=== PATIENT | male | born 1970 | race Caucasian/White ===

== ENCOUNTER 2018-12-27 17:56 | Emergency (ER) | payer MEDICARE, MEDICAID ==
[~2018-12-27] VITALS: Ht 177.8 cm; Wt 120.5 kg
[~2018-12-27 17:56] MED LIST: ALPR-624 PO; LEVO50TA67 PO; METH-234 PO; NEPHC PO; NORCO10T PO; PAX20T PO; SEVE800T8 PO; SIMV-42 PO; TRAZ-91 PO
--- NOTE | 2018-12-27 19:41 | NUR ---
PT FAMILY REPORTS HE HAS THROWN THINGS BEFORE, PT INNER JECTS AND HAS EXPLINATIONS FOR SOME OF HIS BEHVAIOR AND DOES STATES HE IS REACTING TO FEAR . PT ALSO IS JITTERY.
--- NOTE | 2018-12-27 20:00 | NUR ---
UPON REVIEWING PT MED REC , PT WAS A POOR HISTORIAN ON WHAT MEDS HE IS CURRENTLY TAKING AND NOT TAKING. PT EXTERNAL MED HX REPORTS THAT PT WAS PRESCRIBED OVER THE LAST 60 DAYS CLONIDINE HCL 0.1 MG Q HS BUT COULDNT RECALL WHEN HE LAST TOOK MEDICATION AND IF HE WAS TO CONTINUE MEDICATION AFTER FOLLOWI UP WITH PRIMARY MD. ALSO REVIEWED MEDS LEVOXYL 50 MCG PO QD , ZOLPIDEM TARTRATE 5 MG QD , AND bUPRENOPHINE/NALOX - THESE MEDS PT WAS NOT SURE OF LAST KNOWN DATE HE TOOK THEM OR IF HE SHOULD CONTINE UPON REVIEW OF HIS CURRENT MEDICATIONS , DOSAGES, AND LAST TIME HE TOOK THEM. PT DOES REPORT TAKING 1-2 XANAX TID NEEDED, AND A RECENT" WHEENING OF NORCO " " I HAVENT TAKEN ANY NORCO FOR ABOUT A MONTH IN A HALF- FAMILY HOWEVER REPORTS THAT PT WAS TAPERED OFF THRE NORCO BUT DID NOT FOLLOW THE SUGGESTIONS OF THE MD TAPER. MOTHER AT BEDSIDE STATED THAT PT TOOK NORCO HE WANTED UNTIL THEY WERE GONE , AND HASNT HAD ANY IN A FEW WEEKS. PT BEGAN TO ARGUE WITH FAMILY , BUT WAS EASILY CONSOLED WITH VERBAL DISCUSSION AND REASSURNCE.
[2018-12-27 20:04] LABS: BASOPHILS # (AUTO) 0.1 X10'3 (0-0.2); BASOPHILS % (AUTO) 0.8 % (0-1); EOSINOPHILS # (AUTO) 0.1 X10'3 (0-0.9); EOSINOPHILS % (AUTO) 0.8 % (0-6); HEMATOCRIT 40.9 % (42.0-52.0); HEMOGLOBIN 13.3 g/dl (14.0-17.9); LYMPHOCYTES % (AUTO) 7.4 % (21-51); MEAN CORPUSCULAR HEMOGLOBIN 31.6 PG (27.0-31.0); MEAN CORPUSCULAR HGB CONC 32.4 g/dL (33.0-36.5); MEAN CORPUSCULAR VOLUME 97.3 FL (78-98); MEAN PLATELET VOLUME 8.8 FL (7.4-10.4); MONOCYTES # (AUTO) 0.7 X10'3 (0-0.9); MONOCYTES % (AUTO) 4.9 % (2-12); NEUTROPHILS # (AUTO) 11.9 X10'3 (1.8-7.7); NEUTROPHILS % (AUTO) 86.1 % (42-75); PLATELET COUNT 287 X10'3 (140-440); RED CELL DISTRIBUTION WIDTH 15.8 % (11.5-14.5); WHITE BLOOD COUNT 13.8 X10'3 (4.5-11.0)
--- NOTE | 2018-12-27 20:05 | NUR ---
PT MOTHER IS ADELE HICKS PHONE # SISTER IS DOMO MCLEOD BOTH FAMILY MEMEBERS HAVE LEFT THE BEDSIDE AT THIS TIME
--- NOTE | 2018-12-27 20:07 | NUR ---
PT ASKED FOR EXTRA PILLOW TO POSITON FOR COMFORT. PT HOB ELEVATED 30 DEGREEES APPEARS TO BE TRYING TO FALL ASLEEP. CLOSES HIS EYES BUT IS STRALED AWAKE LIKE MAYBE HE IS FALLING . PT ALSO IS BATING THINGS AWAY. WHEN VERBALLY ASK PT IF HE FEELS SAFE , HE STATES YES, I JUST NEED SOME SLEEP .
[2018-12-27 20:10] LABS: ALANINE AMINOTRANSFERASE 29 U/L (12-78); ALBUMIN 4.1 G/DL (3.4-5.0); ALKALINE PHOSPHATASE 72 IU/L (46-116); ANION GAP 19 (8-16); ASPARTATE AMINO TRANSFERASE 25 U/L (10-37); BILIRUBIN,TOTAL 0.6 MG/DL (0.1-1.0); BLOOD UREA NITROGEN 63 MG/DL (7-18); CALCIUM 9.3 MG/DL (8.5-10.1); CHLORIDE 96 MMOL/L (99-107); GLUCOSE 119 MG/DL (70-104); POTASSIUM 3.1 MMOL/L (3.5-5.1); SODIUM 142 MMOL/L (135-145); TOTAL CARBON DIOXIDE 27.5 MMOL/L (24-32); TOTAL PROTEIN 8.3 G/DL (6.4-8.2); eGFR 3 ML/MIN
--- NOTE | 2018-12-27 20:13 | NUR ---
PT POINTING AND TALKING LIKE SOMEONE IS AT THE FOOT OF BED . BUT WHEN APPROACHED PT REPLIES i AM OK
[2018-12-27 20:17] LABS: ETHANOL < 0.010 GM/DL (0.0-0.010)
[2018-12-27 20:31] LABS: BUN/CREATININE RATIO 4.1 (5.4-32.0)
--- NOTE | 2018-12-27 20:49 | NUR ---
PT LAYING ON HIS BACK HOB ELEVATED 30 DEGREES CURRENTLY SLEEPING WITH A SLIGHT SNORE UNLABORED AND COMFORTABLE
--- NOTE | 2018-12-27 21:45 | NUR ---
PT SLEEPING , WITH OCCATIONAL MOTIONS AND MUMBLING. UNLABORED RESPIRATIONS. SELF POSITIONING
--- NOTE | 2018-12-27 22:45 | NUR ---
PT SELF POSTIONING. SLEEPING, TALKS IN HIS SLEEP
[2018-12-27] MEDS ORDERED: CLON0.1T2 PO (23:07)
[2018-12-27] MEDS ORDERED: BUPRENORPHINE/NALOX (23:07)
[2018-12-27] MEDS ORDERED: ZOLP5TAB8 PO (23:07)
--- NOTE | 2018-12-27 23:45 | NUR ---
PT HOB LEVATED 30 DEGREES PER HIS REQUEST. SELF POSITIONING . NO COMPLAINTS AT THIS TIME
--- NOTE | 2018-12-28 00:45 | NUR ---
PT SLEEPING COMFORTABLY ON HIS BACK . UNLABORED CONTENT AT THIS TIME
--- NOTE | 2018-12-28 02:55 | NUR ---
PT SLEEPING ON HIS BACK . OCCATIONALLY MUMBLES IN HIS SLEEP , APPEARS TO MAKE MOTIONS LIKE HE MIGHT BE FALLING AURSOABLE BY TOUCH. ONCE AWOKEN ASKED THE TIME . WARM BLANKET GIVEN MED REC COMPLETED. DR RAO OF PT MUMBLING IN HIS SLEEP . WILL CONTINUE TO REASSESS .
--- NOTE | 2018-12-28 03:02 | NUR ---
PACKET FAXED TO [facility] WITH NOTATION THAT A URINE TOX HAS NOT BEEN COMPLETED BC THE PT DOESNT CREATE URINE. PT IS ON DIALYSIS NEXT VISIT FOR TX IS DUE LAURA 12-28-18 PER PT MOTHER
--- NOTE | 2018-12-28 03:59 | NUR ---
PT RESTING ON BACK IN BED . ALL COVERS REMOVED. OFFERED A WARM BLANKET . HOB ELEVATED 30 DEGREEA. RESPIRATIONS UNLABORED.
--- NOTE | 2018-12-28 05:34 | NUR ---
PT SLEEPING PEACFULLY ON HIS BACK .UNLABORED RESPIRATIONS NO COMPLAINTS AT THIS TIME
--- NOTE | 2018-12-28 05:39 | NUR ---
PT AWAKEN FOR VS . PT VERBALIZED HIS LEFT ARM HAS HIS FISTULA FOR HIS DIALYSIS . REASSURED PT THAT HIS LEFT ARM WILL BE USED FOR BP
[2018-12-28] MEDS ORDERED: ALPRAZolam 0.5mg tablet PO PRN (06:10)
--- NOTE | 2018-12-28 07:00 | NUR ---
Pt received sleeping in bed without complaints and in no distress.
[2018-12-28] MEDS ORDERED: levoTHYROXINE 25mcg tablet PO SCH (08:00)
[2018-12-28] MEDS ORDERED: folic acid/vitamin B complex w/vitamin C 0.8mg tablet PO SCH (08:00)
[2018-12-28] MEDS ORDERED: LIDOcaine 1% (10mg/ml) 2ml vial SQ ONE (08:20)
[2018-12-28] MEDS ORDERED: normal saline 1000ml 250 ML IV PRN (08:20)
--- NOTE | 2018-12-28 09:00 | NUR ---
Pt up for breakfast and was interacting appropriately with staff and peer in bed next to him. No evidence of delusional thought process or hallucinations.
[2018-12-28] MEDS ORDERED: acetaminophen 325mg tablet PO ONE (10:15)
--- NOTE | 2018-12-28 11:00 | NUR ---
Pt sleeping in bed without complaints. Pt had requested tylenol, but fell asleep, so his tylenol is being held.
--- NOTE | 2018-12-28 13:00 | NUR ---
Pt awake for lunch. Pt now requesting tylenol for his neck again. Pt mood and affect are slightly anxious r/t his dialysis and when/where he will be dc'd.
[2018-12-28] MEDS: NICOTINE POLACRILEX 2 MG LOZENGE BC PRN ×2 (13:13→17:36)
--- NOTE | 2018-12-28 13:31 | NUR ---
Pt given tylenol and mom and sister at bedside visiting.
--- NOTE | 2018-12-28 14:32 | NUR ---
PATIENT AMBULATED WITH SMOKED MEAT PREPARER GINA TO ROOM 29 FOR HIS HD RUN
--- NOTE | 2018-12-28 15:02 | NUR ---
Pt off unit receiving dialysis.
--- NOTE | 2018-12-28 17:00 | NUR ---
Pt continues to be under care of dialysis nurse receiving dialysis. Pt did meet with [facility] and his mom and sister and seem to have come to an understanding that he will be dc'd home tonight.
[2018-12-28 19:14] VITALS: BP 151/80
== END 2018-12-28 19:18 | disposition home or self-care (01) ==
LOC: ER 17:57
DX: R44.3 Hallucinations, unspecified (principal); R41.0 Disorientation, unspecified; R53.83 Other fatigue; R56.9 Unspecified convulsions; F41.9 Anxiety disorder, unspecified; F32.9 Major depressive disorder, single episode, unspecified; F17.200 Nicotine dependence, unspecified, uncomplicated; F12.90 Cannabis use, unspecified, uncomplicated; Z79.899 Other long term (current) drug therapy
CPT/HCPCS: 36415; 80053; 80320; 85025; 96372; 96374; 99284; J1644; J2001; G0257

== ENCOUNTER 2019-06-20 10:02 | Outpatient (CLI) | payer MEDICARE, MEDICAID ==
[2019-06-20] VITALS (21 sets, daily range): BP systolic 112–151; BP diastolic 69–102
[~2019-06-20 10:02] MED LIST changes: +BUPRENORPHINE/NALOX; +CLON0.1T2 PO; -METH-234 PO; -NORCO10T PO; -PAX20T PO; -SEVE800T8 PO; -SIMV-42 PO; -TRAZ-91 PO; +ZOLP5TAB8 PO
== END 2019-06-20 23:59 | disposition home or self-care (01) ==
LOC: CARD DIAG 10:02
PROVIDERS: ATTEND Internal Medicine Cardiovascular Disease
DX: R42 Dizziness and giddiness (principal)
CPT/HCPCS: 93660

== ENCOUNTER 2019-11-18 12:41 | Day surgery (SDC) | payer MEDICARE, MEDICAID ==
[~2019-11-18] VITALS: Ht 175.3 cm; Wt 127.7 kg
[2019-11-18 13:00] VITALS: BP 152/78
[2019-11-18] MEDS ORDERED: normal saline 1000ml 1,000 ML IV SCH (13:10)
--- NOTE | 2019-11-18 13:30 | NUR ---
per Dr. Barrow no labs needed.
[2019-11-18] MEDS ORDERED: PREG300C PO (13:33)
[2019-11-18] MEDS ORDERED: CARI-75 PO (13:33)
[2019-11-18] MEDS ORDERED: HYDR-4383 PO (13:34)
[2019-11-18] MEDS ORDERED: LIDOcaine 1%/PF 5ML 10 MG/ML VIAL ONE (14:13)
[2019-11-18] MEDS ORDERED: heparin 1,000unit/ml 10ml vial 10 ML ONE (14:13)
[2019-11-18] MEDS ORDERED: fentaNYL/PF 50MCG/1 ML 2ML syringe ONE (14:38)
[2019-11-18] MEDS ORDERED: midazolam 2 mg/2 ml injection ONE (14:38)
[2019-11-18] MEDS ORDERED: LIDOcaine 1% w/epiNEPHrine 1:200,000 30ml vial ONE (14:45)
[2019-11-18] MEDS ORDERED: DESMOPRESSIN IV ONE (14:55)
[2019-11-18] MEDS ORDERED: gelatin sponge, absorbable (Gelfoam 100) sponge TP ONE (14:55)
[2019-11-18] MEDS ORDERED: NORMAL SALINE IV ONE (14:55)
[2019-11-18 15:22] VITALS: BP 124/78
[2019-11-18 15:30] VITALS: BP 152/70
--- NOTE | 2019-11-18 15:35 | NUR ---
spoke with DR. Barrow cxr ok, discharge pt now.
[2019-11-18 15:45] VITALS: BP 156/76
== END 2019-11-18 16:00 | disposition home or self-care (01) ==
LOC: SSTAY O 12:41
PROVIDERS: ATTEND Radiology Vascular & Interventional Radiology
DX: T82.590A Other mechanical complication of surgically created arteriovenous fistula, initial encounter (principal); N18.6 End stage renal disease; N17.9 Acute kidney failure, unspecified; Z88.8 Allergy status to other drugs, medicaments and biological substances; Y83.8 Other surgical procedures as the cause of abnormal reaction of the patient, or of later complication, without mention of misadventure at the time of the procedure; Y92.89 Other specified places as the place of occurrence of the external cause
CPT/HCPCS: 36558; 71045; 76937; 77001; C1750; C1769; C1894; J1644; J2250; J3010; 99152; 99153; A9270

== ENCOUNTER 2021-04-06 10:22 | Emergency (ER) | payer MEDICARE, MEDICAID ==
[~2021-04-06] VITALS: Ht 177.8 cm; Wt 127.0 kg
[~2021-04-06 10:22] MED LIST changes: -ALPR-624 PO; +CARI-75 PO; -CLON0.1T2 PO; +HYDR-4383 PO; +PREG300C PO; -ZOLP5TAB8 PO
[2021-04-06 10:27] VITALS: BP 197/107
--- NOTE | 2021-04-06 10:36 | NUR ---
Pt now stating that he is ready to give up, when asked pt states that he is experiencing SI. Plan to borrow someones vehicle and drive "off the freeway".
--- NOTE | 2021-04-06 10:40 | NUR ---
PT STATED " IM JUST READY TO END IT ALL." MD AT BEDSIDE ASKED PT IF HE HAS A PLAN. PT STATED " I WOULD BORROW A CAR AND DRIVE IT OFF THE FREEWAY." MD EXPLAINED TO PT THAT HE WILL BE EVALUATED BY MENTAL HEALTH FOR HIS SUICIDAL THOUGHTS W/ PLAN. MD EXPLAINED THAT THIS WILL NOT CHANGE THE COURSE OF ACTION FOR HIS MEDICAL CARE. EXPLAINED THAT THESE MEDICAL COMPLAINTS ARE CHRONIC AND ARE BEING TREATED BY PTS SCOOTER MECHANIC AND NO MEDICAL CHANGES WILL BE MADE AT THIS TIME. PT VERBALIZED HE UNDERSTANDS. PT CONT TO SAY HE IS FED UP AND WANTS TO "END IT."
--- NOTE | 2021-04-06 10:46 | NUR ---
Spoke with Dr. sosa regarding patient needing a COVID swab prior to being sent ot the OF unit. Dr. sosa gave verbal order for COVID DIO swab once now.
[2021-04-06 11:05] LABS: BASOPHILS % (AUTO) 0.6 % (0-1); EOSINOPHILS # (AUTO) 0.3 X10'3 (0-0.9); EOSINOPHILS % (AUTO) 3.4 % (0-6); HEMATOCRIT 27.7 % (42.0-52.0); HEMOGLOBIN 9.3 g/dl (14.0-17.9); LYMPHOCYTES # (AUTO) 0.9 X10'3 (1.1-4.8); LYMPHOCYTES % (AUTO) 11.8 % (21-51); MEAN CORPUSCULAR HEMOGLOBIN 32.8 PG (27.0-31.0); MEAN CORPUSCULAR HGB CONC 33.7 g/dL (33.0-36.5); MEAN CORPUSCULAR VOLUME 97.4 FL (78-98); MEAN PLATELET VOLUME 8.7 FL (7.4-10.4); MONOCYTES # (AUTO) 0.7 X10'3 (0-0.9); MONOCYTES % (AUTO) 9.1 % (2-12); NEUTROPHILS # (AUTO) 5.9 X10'3 (1.8-7.7); NEUTROPHILS % (AUTO) 75.1 % (42-75); PLATELET COUNT 150 X10'3 (140-440); RED BLOOD COUNT 2.84 X10'6 (4.70-6.10); RED CELL DISTRIBUTION WIDTH 14.5 % (11.5-14.5); WHITE BLOOD COUNT 7.8 X10'3 (4.5-11.0)
[2021-04-06 11:25] LABS: ALANINE AMINOTRANSFERASE 18 U/L (12-78); ALBUMIN 3.7 G/DL (3.4-5.0); ALBUMIN/GLOBULIN RATIO 1.2 (1.1-1.5); ALKALINE PHOSPHATASE 41 IU/L (46-116); ANION GAP 14 (8-16); ASPARTATE AMINO TRANSFERASE 7 U/L (10-37); BILIRUBIN,TOTAL 0.3 MG/DL (0.1-1.0); CHLORIDE 98 MMOL/L (99-107); GLUCOSE 102 MG/DL (70-104); POTASSIUM 4.9 MMOL/L (3.5-5.1); SODIUM 141 MMOL/L (135-145); TOTAL CARBON DIOXIDE 28.8 MMOL/L (24-32); TOTAL PROTEIN 6.8 G/DL (6.4-8.2)
--- NOTE | 2021-04-06 11:32 | NUR ---
PT CHANGED INTO GREEN SCRUBS. ALL PERSONAL BELONGINGS REMOVED AND TO BE TAKEN HOME W/PT MOTHER. WHEN I TOLD THE PT THAT HE IS NOT ABLE TO KEEP HIS CELL PHONE, PT BECAME AGITATED AND SAID " I JUST TOLD YOU ALL THAT SO THAT YOU WOULD ADMIT ME TO THE HOSPITAL." I EXPLAINED TO THE PT THAT WE TAKE ALL SUICIDAL THREATS SERIOUSLY AND HE WILL NEED TO BE CLEARED BY MENTAL HEALTH PRIOR TO DC. I EXPLAINED TO THE PT HE IS ON A 1799 HOLD AND DOES NOT HAVE THE OPTION TO LEAVE. PT THREATENING TO LEAVE AND SHOWING FORWARD MOVEMENT TOWARDS DOOR. SECURITY CALLED TO BEDSIDE. PT MOTHER ALSO SHOWING SIGNS OF AGITATION, PT ESCORTED OUT OF ER BY SECURITY AFTER SHE IS REFUSING TO FOLLOW INSTRUCTIONS, AND YELLING DEMANDS AT STAFF.
[2021-04-06 11:34] LABS: BLOOD UREA NITROGEN 42 MG/DL (7-18); CREATININE 10.54 MG/DL (0.60-1.10); eGFR 5 ML/MIN
[2021-04-06 11:35] LABS: ETHANOL < 0.010 GM/DL (0.0-0.010)
[2021-04-06] MEDS ORDERED: PHO667C PO (12:16)
[2021-04-06] MEDS ORDERED: CLON0.1T2 PO (12:27)
[2021-04-06] MEDS ORDERED: CARV6.253 PO (12:27)
[2021-04-06] MEDS ORDERED: HYDR-4069 (12:27)
[2021-04-06] MEDS ORDERED: TRAZ-251 PO (12:27)
[2021-04-06] MEDS ORDERED: LISI40TA13 PO (12:27)
[2021-04-06] MEDS ORDERED: ALPR0.5T9 (12:27)
--- NOTE | 2021-04-06 12:30 | NUR ---
Med rec complete, spoke with Dr. Taylor who at this point does not wish to reorder any medications until after evaluation by [facility].
--- NOTE | 2021-04-06 13:00 | NUR ---
Pt apolegized for earlier behavior and currently is playing cards with another pt.
--- NOTE | 2021-04-06 15:00 | NUR ---
Pt currently being evaluated by [facility]. Pt cooperative with process.
== END 2021-04-06 16:45 | disposition home or self-care (01) ==
LOC: ER 10:23
DX: R45.851 Suicidal ideations (principal); Z20.822 Contact with and (suspected) exposure to COVID-19; I10 Essential (primary) hypertension; G62.9 Polyneuropathy, unspecified; I12.0 Hypertensive chronic kidney disease with stage 5 chronic kidney disease or end stage renal disease; N18.6 End stage renal disease; F12.90 Cannabis use, unspecified, uncomplicated; Z99.2 Dependence on renal dialysis; Z79.899 Other long term (current) drug therapy
CPT/HCPCS: 36415; 80053; 80320; 84443; 85025; 87635; 99285; C9803